=== PATIENT | female | born 1955 | race Caucasian/White ===

== ENCOUNTER → 2021-06-12 | Day surgery (SDC) | payer OTHER ==
[~2021-06-12] VITALS: Ht 167.6 cm; Wt 77.1 kg
[~2021-06-12] MED LIST: FLEXERIL PO
[2021-06-12 11:35] VITALS: BP 153/78
--- NOTE | 2021-06-16 06:13 | O ---
[facility] [place] [address] OPERATIVE REPORT Name: KATHI MCKEON Room #: REG [facility].#: [id number] Admission: 06/12/21 Attend Phys: Segun Olivera MD Discharge: Date of : 57 Report #: [id number] THIS REPORT FOR: cc: FAM - Family physician unknown FAM - Family physician unknown Segun Olivera MD ~ cc: Osmani Alvarez DO DATE OF SERVICE: 06/12/2021 PREOPERATIVE DIAGNOSIS: Tumor of right lower lid and cheek. 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 PROCEDURES: Excision of tumor of right lower lid and cheek with frozen section control of margins and myocutaneous flap repair of defect. SURGEON: Segun Olivera MD PROGRAM REVIEW DIRECTOR: None. ANESTHESIA: MAC. COMPLICATIONS: None. INDICATIONS FOR SURGERY: This pleasant 65-year-old woman has a rapidly enlarging lesion in her medial right lower lid extending anterior to her nasojugal fold. The lesion is thought to most likely be a squamous cell carcinoma. She presents today for excision of this lesion with frozen sections and subsequent reconstruction of that defect. Informed consent was obtained to include but not limited to the potential risk for loss of vision, bleeding, infection, failure to improve the problem, the potential need for further surgery or treatment. DESCRIPTION OF PROCEDURE: The patient was taken to the operating room where 2% Xylocaine with epinephrine mixed equal parts 0.75% Marcaine with Wydase was administered transcutaneously to the right lower lid, the right cheek and the right medial canthus. The patient was subsequently prepped and draped in the usual sterile fashion. A fine tip skin marking pen was utilized to outline the lesion including approximately 2 mm of normal appearing tissue. The incisions were then made with a 15C blade down parallel to the angular artery, which was cut during the dissection. The specimen was then oriented on a drawing for the waiting pathologist as hemostasis was achieved in the field. The pathologist snap froze the specimen and said that our margins were clear. A myocutaneous flap was then developed laterally to be rotated medially. [address] [address] OPERATIVE REPORT Name: KATHI MCKEON Room #: REG [facility].#: [id number] Admission: 06/12/21 Attend Phys: Segun Olivera MD Discharge: Date of : 57 Report #: [id number] Hemostasis was then re-achieved. The flap was then advanced and secured with multiple interrupted 6-0 plain gut sutures. The wounds were then cleaned and dressed with erythromycin ophthalmic ointment. The patient subsequently transported to the recovery area having tolerated the procedures well with no anesthetic or operative complications being noted. <ELECTRONICALLY SIGNED> By: Segun Olivera MD 06/16/21 0613 0940 Segun Olivera MD /nt
--- NOTE | 2021-06-16 10:11 | PATH ---
[address] [address] PATHOLOGY RPT PROCEDURE Name: KATHI MCKEON Room #: REG [facility]#: [id number] Admission: 06/12/21 Date of : 57 Discharge: Report #: [id number] Path Case #: [id number] [facility] Accession Number: [id number] . 01 Material submitted: . eyelid - LESION RIGHT LOWER EYELID FS. Modifiers: right, lower . 01 Clinical history: . EXCISION LESION EYELID . 02 Frozen section diagnosis: . FROZEN SECTION DIAGNOSIS: (Cadence Arceo M.D.): . FSA1. Lesion right lower eyelid, excision: - Margins free of invasive carcinoma in the FS slide examined. . These findings are discussed with Dr. Segun Olivera in OR6 at [facility] and a written report is placed in the patient's chart. . Frozen section performed at [facility], [address] [place], [place] [address]dave Jones, [place] [address]. . . FROZEN SECTION GROSS DESCRIPTION: The specimen is received fresh from the OR labeled with the patient's name, and "lesion right lower eyelid", consists of an ellipse of skin measuring 1.5 x 0.7 x 0.5 cm. There is a raised exophytic lesion on the surface which appears approximately 1 mm away from both its lateral and medial margins. The specimen is oriented as superior, medial, inferior, lateral. The superior to medial to inferior margin is inked black, the inferior to lateral margin is inked blue and the lateral to superior margin is inked green. The deep margin is inked black. The specimen is sectioned into four pieces and entirely submitted for frozen section as FSA1, this is subsequently submitted for permanent sections as A1. (IUV/db; 06/12/2021) LANIEV/ELLIOTQ . 02 Diagnosis: Skin, lesion right lower eyelid, excision: - SQUAMOUS CELL CARCINOMA. - Margins of resection free of malignancy in the sections examined. (IUV:world history teacher; 06/13/2021) MBR 06/13/2021 1436 Local . 02 Electronically signed: . Cadence Arceo MD, [place] [address] PATHOLOGY RPT PROCEDURE Name: KATHI MCKEON Room #: REG [facility] M.R.#: [id number] Admission: 06/12/21 Date of : 57 Discharge: Report #: [id number] Path Case #: [id number] NPI- [id number] . 01 Gross description: . SEE FROZEN SECTION GROSS DESCRIPTION. /LBQ 06/12/2021 1217 Local . 02 Pathologist provided ICD-10: C44.1222 . 02 CPT . 696330, [id number] Specimen Comment: A courtesy copy of this report has been sent to [phone] Specimen Comment: Report sent to Performed at: [address], [place] [id number] MD Blake Bailey MD Phone: [phone] Performed at: [address] [id number] MD Cadence Arceo MD Phone: [phone]
== END | disposition home or self-care (01) ==
LOC: OR 08:23
PROVIDERS: ATTEND Ophthalmology
DX: C44.1222 Squamous cell carcinoma of skin of right lower eyelid, including canthus (principal); E11.9 Type 2 diabetes mellitus without complications; E03.9 Hypothyroidism, unspecified; Z98.890 Other specified postprocedural states; Z79.899 Other long term (current) drug therapy; Z85.828 Personal history of other malignant neoplasm of skin; Z20.822 Contact with and (suspected) exposure to COVID-19; Z90.710 Acquired absence of both cervix and uterus; Z90.49 Acquired absence of other specified parts of digestive tract
CPT/HCPCS: 50010; 50101; 50386; 50398; 51636; 62110; 62850; 70005